=== PATIENT | female | born 1995 | race Hispanic/Latino ===

== ENCOUNTER 2018-05-20 03:58 | Inpatient (IN) | payer BC ==
[2018-05-20] MEDS ORDERED: MIDAZOLAM HCL 2 MG/2 ML INJ IV PRN ×2 (03:59→15:33)
[2018-05-20] MEDS ORDERED: BUTORPHANOL 1 MG/ML INJ IV PRN ×2 (03:59→15:31)
[2018-05-20] MEDS ORDERED: Ringers Lactate 1,000 ML IV PRN ×2 (03:59→15:32)
[2018-05-20] MEDS ORDERED: METHYLERGONOVINE 0.2MG/ML AMP IM PRN ×2 (03:59→15:33)
[2018-05-20] MEDS ORDERED: CARBOPROST TROME 250 MCG/ML IM PRN ×2 (03:59→15:31)
[2018-05-20] MEDS ORDERED: PROMETHAZINE 25 MG/ML VIAL IM PRN ×2 (03:59→15:33)
[2018-05-20] MEDS ORDERED: MEPERIDINE HCL 25 MG/0.5 ML IV PRN ×2 (03:59→15:33)
[2018-05-20] MEDS ORDERED: OXYTOCIN/LR 20 UNIT/1,000 ML BAG IV SCH ×3 (04:00→20:00)
[2018-05-20] MEDS ORDERED: Ringers Lactate 1,000 ML IV SCH ×2 (04:00→16:00)
[2018-05-20 04:46] VITALS: BMI 30.2
[2018-05-20 04:47] LABS: RPR Titer ND
[2018-05-20 04:52] LABS: Absolute Lymphocytes (CBC) 2.6 K/uL (0.7-4.9); Absolute Monocytes 0.8 K/uL (0.1-1.3); Absolute Neutrophil 6.8 K/uL (1.8-8.0); Basophils % 0.5 % (0-1.3); Eosinophils % 1.3 % (0-4.4); Hematocrit 31.4 % (36.0-45.0); Lymphocytes % 24.8 % (15.3-44.8); MCH 26.7 pg (27.0-35.0); MCV 80.1 fL (80-100); MPV 9.5 fL (7.6-11.3); Monocytes % 7.8 % (3.3-12.3); RBC Red Blood Cell Count 3.92 M/uL (3.86-4.86)
[2018-05-20 05:02] LABS: Urine Appearance CLOUDY; Urine Bilirubin NEGATIVE (NEG); Urine Blood NEGATIVE (NEG); Urine Color YELLOW; Urine Glucose NEGATIVE (NEG); Urine Protein NEGATIVE (NEG); Urine Specific Gravity 1.015 (1.005-1.030); Urine Urobilinogen 0.2 mg/dL (0.2-1.0)
[2018-05-20 05:24] LABS: Urine Microscopic Reflex ORDER UMIC
[2018-05-20 05:28] LABS: Urine Bacteria >50 /HPF (<20); Urine RBC <5 /HPF (NONE SEEN)
[2018-05-20 05:29] LABS: Urine Culture Reflex Order REFLEXED
--- NOTE | 2018-05-20 11:34 | PREOPHP ---
Date of Admission: 05/20/2018 A 22-year-old, 2, para 1, 39 weeks and 1 day. The patient is Rh negative, received RhoGAM du ring the . Immune to Rubella. Negative beta strep screen. FHTs normal, reactive. The pat ient is 1.5 cm, quentin regularly. Rupture of membranes, clear fluid. Labor talk given. Antici fuentes delivery sometime later today. She plans on natural childbirth, but now she can change her mind if she chooses. SHELBY/KENDALL Voice ID: [id number]
--- NOTE | 2018-05-20 13:55 | PN ---
Henry every 1.5 minutes. FHT is reactive. She is now 3 cm, 60% effaced, vertex, -1 station, w ell applied. Requesting IV medications. She is trying to avoid an epidural. I think that she can m nan it to 5 cm without getting an epidural, then she will probably go much faster thereafter. She kn ows that if she decides she wants the epidural, she has to inform nursing personnel. Full discussion . SHELBY/KENDALL Voice ID: [id number] Report ID: [id number]
[2018-05-20] MEDS ORDERED: LIDOCAINE 2% INJ, 20 mL 20 ML ONE (15:38)
--- NOTE | 2018-05-20 17:40 | PN ---
A 22-year-old female, now 8.5 cm, has a little edema to cervix at about the 10 o'clock area with cont ractions. We tried to reduce, but it was not possible. Baby is occiput posterior. We will let her stand by the bed and do pelvic rocks. She is using Lamaze breathing techniques. I think as soon as the baby rotates, will be ready for delivery. SHELBY/KENDALL Voice ID: [id number] Report ID: [id number]
[2018-05-20] MEDS ORDERED: METHYLERGONOVINE 0.2 MG TAB PO PRN (19:47)
[2018-05-20] MEDS ORDERED: ACETAMINOPHEN 500 MG TAB PO PRN (19:47)
[2018-05-20] MEDS ORDERED: DOCUSATE NA/SENNA CONC 1 TAB PO PRN (19:47)
[2018-05-20] MEDS ORDERED: IBUPROFEN 200 MG TAB PO PRN (19:47)
[2018-05-20] MEDS ORDERED: DIPHENHYDRAMINE 25 MG TAB/CAP PO PRN (19:47)
[2018-05-20] MEDS ORDERED: BISACODYL 10 MG RECTAL SUPP RECT PRN (19:47)
[2018-05-20] MEDS ORDERED: Oxycodone HCl/Acetaminophen 1 TAB TAB PO PRN ×2 (19:47)
[2018-05-21 02:00] LABS: RPR (Rapid Plasma Reagin) NON-REACT (NON-REACT)
--- NOTE | 2018-05-21 02:35 | DN ---
Surgeon: Angelo Arce MD This is a 22-year-old female, 2, para 1, Rh negative, immune to Rubella. Negative beta strep screen. Admitted for labor induction. 1-1/2 cm on admission. Rupture of membranes, clear fluid. The patient progressed well during the day. Received Stadol IV 1 mg x2, Phenergan 25 mg 1 time IM. Noted to be 9 cm in occiput posterior for almost 2 hours and then she pushed past the cervix. Then p ushed for approximately 25 to 30 minutes. Spontaneous vaginal delivery of 7 pounds, 14 ounce female, persistent occiput posterior. Apgars 8 and 9. No episiotomy. No laceration. Schultze delivery of the placenta was inspected and noted to be intact and normal. Mild uterine hypertonicity. Estimate d blood loss 400 cc. IV drip Pitocin, massage and 0.2 mg of Methergine IM. Tolerated all procedures well. 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 Mild uterine hypotonus. NBC/MODL Voice ID: [id number] Report ID: [id number]
--- NOTE | 2018-05-21 09:08 | DS ---
Hospital Course: A 22-year-old 2, para 1, 39 weeks 1 day, delivered a 7 pound, 14 ounce fema le, persistent occiput posterior, Apgars 8 and 9. No episiotomy. No laceration. Acevedo delivery o f the placenta, which was inspected and noted to be intact and normal. Mild uterine hypotonus, 0.2 m g of Methergine as well as IV drip Pitocin massage. Estimated blood loss 400 to 450 cc. Beta strep negative. afebrile, ambulating and voiding. Will be dismissed either later this evening or tomorrow morning. To report back to my office in 6 weeks for followup. To report any temperature elevation of 100 degrees or greater, severe pain, heavy bleeding, or any other type of abnormalities . Dismissed with tramadol, although she knows this goes through the breast milk and may elect to mariama e Motrin instead. She is Rh negative, and is being qualified for RhoGAM. She has had her Tdap immun ization during the . Final Diagnoses: Term intrauterine 39 weeks 1 day, vaginal delivery, mild uterine hypotonu s, persistent occiput posterior, qualification for RhoGAM. SHELBY/KENDALL Voice ID: [id number] Report ID: [id number]
--- NOTE | 2018-05-21 09:08 | PN ---
The patient has been at 9 cm with an anterior lip on the patient's right side now for more than 2 ly rs. We have tried to get her to push with contractions. See if we could reduce the lip, but it has not worked. Baby is persistent occiput posterior. She has tried pelvic rocks, and that has also not worked. We will put her on what is called the peanut and get her to rock on that, and see if that c an bring about rotation. Her first baby was only 5 pounds. This one is probably larger, but I think the main problem is occiput posterior. She is on 24 milliunits of Pitocin, having contractions ever y 90 seconds. So the contraction pattern is conducive to the delivery and she is having it appears t o be very firm contractions. Baby still looks good. The patient is starting to think about a lyn an. We have decided we will wait at least another 0.5 hour, and if no progress, then probably procee d with operative delivery at that point. SHELBY/KENDALL Voice ID: [id number] Report ID: [id number]
--- NOTE | 2018-05-21 09:11 | PN ---
Overnight patient has done quite well. Lochia is normal. She is ambulating with no complaints voice d. We went over dismissal instructions because of her delivery late in the evening. She probably wi ll not have the baby dismissed until tomorrow morning. If the baby is let go this evening, she can g o home this evening. She will call the office today for an appointment and we will go over dismissal instructions again tomorrow. She is Rh negative, is being screened for RhoGAM. She has had her Tda p immunization. SHELBY/KENDALL Voice ID: [id number] Report ID: [id number]
[2018-05-21 21:27] VITALS: BP 123/74; TEMP 96.5
[2018-05-23 03:31] LABS: HBsAG Nonreactive (Nonreactive)
== END 2018-05-21 22:15 | disposition home or self-care (01) | DRG 775 ==
LOC: 2ND-WC 03:58
PROVIDERS: ADMIT Specialist; ATTEND Specialist
PROC: 10E0XZZ Delivery of Products of Conception, External Approach (ICD-10-PCS; principal; 2018-05-20)
PROC: 3E033VJ Introduction of Other Hormone into Peripheral Vein, Percutaneous Approach (ICD-10-PCS; principal; 2018-05-20)
PROC: 10907ZC Drainage of Amniotic Fluid, Therapeutic from Products of Conception, Via Natural or Artificial Opening (ICD-10-PCS; principal; 2018-05-20)
DX: O64.0XX0 Obstructed labor due to incomplete rotation of fetal head, not applicable or unspecified (principal); O62.2 Other uterine inertia; Z3A.39 39 weeks gestation of pregnancy; Z37.0 Single live birth
CPT/HCPCS: 36415; 81003; 81015; 85014; 85025; 86592; 86850; 86870; 86900; 86901; 87086; 87088; 87340; J0595; J2175; J2210; J2250; J2550; J2590